=== PATIENT | female | born 1945 | race Caucasian/White ===

== ENCOUNTER 2020-10-29 12:42 | Emergency (ER) | payer MEDICARE ==
[~2020-10-29] VITALS: Wt 59.0 kg
[2020-10-29 14:34] LABS: BASO # 0.1 10*3/uL (0.0-0.1); BASO % 0.8 % (0.0-1.0); EOS # 0.3 10*3/uL (0.0-0.4); EOS % 2.4 % (1.0-4.0); HEMATOCRIT 41.8 % (37.0-47.0); LYMPH # 1.4 10*3/uL (1.3-4.4); LYMPH % 13.7 % (27.0-41.0); MEAN CELL VOLUME 94.1 fl (81.0-99.0); MEAN CORPUSCULAR HGB 30.6 pg (27.0-31.0); MEAN CORPUSCULAR HGB CONC 32.5 g/dl (33.0-37.0); MEAN PLATELET VOLUME 9.3 fl (9.6-12.3); MONO # 0.9 10*3/uL (0.1-1.0); MONO % 8.6 % (3.0-9.0); NEUT # 7.6 10*3/uL (2.3-7.9); NEUT % 74.1 % (47.0-73.0); PLATELET COUNT AUTOMATED 218 10*3/uL (130-400); RED BLOOD COUNT 4.44 10*6/uL (4.10-5.10); RED CELL DISTRI WIDTH 12.6 % (0-14.5); WHITE BLOOD COUNT 10.3 10*3/uL (4.8-10.8)
[2020-10-29 14:53] LABS: ALBUMIN 3.5 gm/dl (3.1-4.5); ALKALINE PHOSPHATASE 103 U/L (45-117); BUN 14 mg/dl (7-24); CHLORIDE 108 mmol/L (98-107); CREATININE 0.67 mg/dL (0.55-1.02); LIPASE 78 U/L (73-393); POTASSIUM 4.7 mmol/L (3.5-5.1); SGOT/AST 29 IU/L (3-35); SGPT/ALT 27 U/L (12-78); SODIUM 138 mmol/L (136-145); TOTAL PROTEIN 7.7 gm/dL (6.4-8.2)
[2020-10-29 15:01] LABS: TROPONIN I < 0.015 ng/ml (<0.045)
[2020-10-29] MEDS ORDERED: ZITHROMAX250 MG PO (17:05)
[2020-10-29] MEDS ORDERED: PREDNISONE50 MG PO (17:05)
== END 2020-10-29 17:14 | disposition home or self-care (01) ==
LOC: ED 12:42
PROVIDERS: Emergency Medicine
DX: J20.9 Acute bronchitis, unspecified (principal); J45.909 Unspecified asthma, uncomplicated; F17.200 Nicotine dependence, unspecified, uncomplicated

== ENCOUNTER → 2021-11-11 | Outpatient (CLI) | payer MEDICARE ==
[~2021-11-11] MED LIST: PREDNISONE50 MG PO; ZITHROMAX250 MG PO
[2021-11-11 13:17] LABS: IRON 67 ug/dL (50-170)
== END | disposition home or self-care (01) ==
LOC: LAB 12:20
PROVIDERS: ATTEND Physician Assistant Medical
DX: C49.0 Malignant neoplasm of connective and soft tissue of head, face and neck (principal); R20.8 Other disturbances of skin sensation

== ENCOUNTER → 2023-01-13 | Outpatient (CLI) | payer MEDICARE ==
[2023-01-13 10:49] LABS: BASO # 0.1 10*3/uL (0.0-0.1); BASO % 1.4 % (0.0-1.0); EOS # 0.2 10*3/uL (0.0-0.4); EOS % 3.4 % (1.0-4.0); HEMATOCRIT 42.5 % (37.0-47.0); LYMPH # 1.4 10*3/uL (1.3-4.4); LYMPH % 25.8 % (27.0-41.0); MEAN CELL VOLUME 93.2 fl (81.0-99.0); MEAN CORPUSCULAR HGB 30.5 pg (27.0-31.0); MEAN CORPUSCULAR HGB CONC 32.7 g/dl (33.0-37.0); MEAN PLATELET VOLUME 9.3 fl (9.6-12.3); MONO # 0.5 10*3/uL (0.1-1.0); MONO % 8.5 % (3.0-9.0); NEUT # 3.4 10*3/uL (2.3-7.9); NEUT % 60.4 % (47.0-73.0); PLATELET COUNT AUTOMATED 232 10*3/uL (130-400); RED BLOOD COUNT 4.56 10*6/uL (4.10-5.10); WHITE BLOOD COUNT 5.6 10*3/uL (4.8-10.8)
[2023-01-13 11:17] LABS: ALKALINE PHOSPHATASE 86 U/L (46-116); BUN 14 mg/dl (9-23); CHLORIDE 107 mmol/L (98-107); CHOLESTEROL 233 mg/dL (<200); LDL CHOLESTEROL 144 mg/dL (9-159); POTASSIUM 4.1 mmol/L (3.4-5.1); SGPT/ALT 31 U/L (5-49); TOTAL PROTEIN 6.9 gm/dL (6.0-8.0); TRIGLYCERIDES 128 mg/dl (<150)
== END | disposition home or self-care (01) ==
LOC: LAB 10:10
PROVIDERS: ATTEND Nurse Practitioner Family
DX: Z79.899 Other long term (current) drug therapy (principal)

== ENCOUNTER 2024-09-19 07:53 | Emergency (ER) | payer MEDICARE ==
[~2024-09-19] VITALS: Ht 165.1 cm; Wt 52.2 kg
[2024-09-19] MEDS ORDERED: TRAZODONE50 MG PO (08:02)
[2024-09-19] MEDS ORDERED: MEMANTINE HCL10 MG PO (08:02)
[2024-09-19] MEDS ORDERED: ESCITALOPRAM OXA5 MG PO (08:03)
[2024-09-19] MEDS ORDERED: RIVASTIGMINE T1.5 M1 PO (08:04)
[2024-09-19] MEDS ORDERED: BENZTROPINE ME0.5 MG PO (08:04)
[2024-09-19] MEDS ORDERED: ROSUVASTATIN CA20 MG PO (08:04)
[2024-09-19] MEDS ORDERED: OMEPRAZOLE MAGN20 MG PO (08:04)
[2024-09-19] MEDS ORDERED: DONEPEZIL HCL10 MG PO (08:05)
[2024-09-19 08:20] LABS: BASO # 0.1 10*3/uL (0.0-0.1); BASO % 0.9 % (0.0-1.0); EOS # 0.1 10*3/uL (0.0-0.4); EOS % 1.0 % (1.0-4.0); MEAN CELL VOLUME 92.4 fl (81.0-99.0); MEAN CORPUSCULAR HGB 30.5 pg (27.0-31.0); MEAN PLATELET VOLUME 8.9 fl (9.6-12.3); MONO # 0.6 10*3/uL (0.1-1.0); MONO % 8.0 % (3.0-9.0); NEUT # 5.4 10*3/uL (2.3-7.9); NEUT % 77.5 % (47.0-73.0); NUCLEATED RED BLOOD CELL 0.0 % (0.0-0.0); NUCLEATED RED BLOOD CELL 0.0 10*3/uL (0.0-0.0); PLATELET COUNT AUTOMATED 233 10*3/uL (130-400); RED CELL DISTRI WIDTH 13.3 % (0-14.5)
[2024-09-19 08:31] LABS: ACT PARTIAL THROMBO TIME 24.7 SECONDS (20.0-32.1)
[2024-09-19 08:35] LABS: VENOUS BLOOD GAS O2 SAT 74.2 % (60.0-85.0)
[2024-09-19 08:41] LABS: BUN 16 mg/dl (9-23); SGPT/ALT 47 U/L (5-49)
[2024-09-19 09:19] LABS: BILIRUBIN Negative (Negative); BLOOD Negative (Negative); CLARITY Clear (Clear); COLOR Yellow (Yellow); KETONE Negative (Negative); LEUKO ESTERASE Negative (Negative); NITRITE Negative (Negative); PH 7.0 (4.5-8.0); SPECIFIC GRAVITY <= 1.005 (1.001-1.030); UROBILINOGEN 0.2 E.U./dl (0.0-1.0)
[2024-09-19 09:29] LABS: RBC 0-2 rbc/hpf (0-2)
[2024-09-25] MEDS ORDERED: DHIVY 25-100 M1 EAC1 PO (05:05)
[2024-09-25] MEDS ORDERED: PAROXETINE10 MG PO (05:07)
[2024-09-25] MEDS ORDERED: ASPIRIN ADULT L81 M2 PO (05:07)
[2024-09-25] MEDS ORDERED: VITAMIN C250 M2 PO (05:09)
[2024-09-25] MEDS ORDERED: BIOTIN5000 MC2 PO (05:09)
[2024-09-25] MEDS ORDERED: MAGNESIUM250 M1 PO (05:09)
[2024-09-25] MEDS ORDERED: SENOKOT8.7 MG PO (05:10)
[2024-09-25] MEDS ORDERED: COQ-10100 MG PO (05:10)
[2024-09-25] MEDS ORDERED: D3-200050 MCG PO (05:11)
[2024-09-25] MEDS ORDERED: BACTRIM DS 8001 EACH PO (15:39)
== END 2024-09-19 11:31 | disposition home or self-care (01) ==
LOC: ED 07:53
PROVIDERS: Internal Medicine
DX: R41.82 Altered mental status, unspecified (principal); T42.8X5A Adverse effect of antiparkinsonism drugs and other central muscle-tone depressants, initial encounter; G20.A1 Parkinson's disease without dyskinesia, without mention of fluctuations; Z79.899 Other long term (current) drug therapy; Y92.89 Other specified places as the place of occurrence of the external cause